=== PATIENT | female | born 1970 | race Two or more races ===

== ENCOUNTER 2020-12-03 19:39 | Emergency (ER) | payer SELFPAY ==
[~2020-12-03] VITALS: Ht 157.5 cm; Wt 81.8 kg
[2020-12-03] MEDS ORDERED: IV NORMAL SALINE 1000ML BAG 1,000 ML IV ONE ×2 (20:30→21:30)
[2020-12-03] MEDS ORDERED: KETOROLAC 15 MG/ML VIAL. IVP ONE (20:45)
[2020-12-03] MEDS ORDERED: FAMOTIDINE 20 MG/2 ML VIAL IVP ONE (20:45)
[2020-12-03] MEDS ORDERED: ONDANSETRON PF 4 MG/2 ML VIAL. IVP ONE (20:45)
[2020-12-03 20:59] LABS: BASO % 0 % (0-3); EOS # 0.1 x10^3/uL (0.0-0.7); EOS % 1 % (0-3); HEMATOCRIT 47.2 % (36.0-47.0); HEMOGLOBIN 16.1 g/dL (12.0-15.5); LYMPH # 1.6 x10^3/uL (1.0-4.8); LYMPH % 13 % (24-48); MEAN CORPUSCULAR HEMOGLOBIN 29 pg (25-35); MEAN CORPUSCULAR HGB CONC 34 g/dL (31-37); MEAN CORPUSCULAR VOLUME 84 fL (79-100); MONO # 0.8 x10^3/uL (0.0-1.1); MONO % 7 % (0-9); NEUT # 10.3 x10^3/uL (1.8-7.7); NEUT % 80 % (31-73); PLATELET COUNT 242 x10^3/uL (140-400); RED BLOOD COUNT 5.59 x10^6/uL (3.50-5.40); RED CELL DISTRIBUTION WIDTH 14.7 % (11.5-14.5); WHITE BLOOD COUNT 12.9 x10^3/uL (4.0-11.0)
[2020-12-03] MEDS ORDERED: fentaNYL PF VIAL 100 MCG/2 ML VIAL IV ONE (21:00)
--- NOTE | 2020-12-03 21:09 | PHYS DOC ---
Past Medical History Past Medical History: No Pertinent History Past Surgical History: Other Additional Past Surgical Histo: Ovarian cyst Smoking Status: Never Smoker Alcohol Use: None Drug Use: None General Adult EDM: Chief Complaint: ABDOMINAL PAIN HPI: HPI: Patient is a 50 year old female who presents with LLQ abdominal pain N/V/D of 2 hours duration. Lapel Baster used to obtain history. Pain described as throbbing in nature and 10/10 severity. Patient has no known COVID contacts. Patient has taken ibuprofen which has not helped. Patient has associated hand cramping bilaterally. Denies fever/chills. Denies trauma. Review of Systems: Review of Systems: Constitutional: Denies fever or chills Eyes: Denies redness or eye pain HENT: Denies nasal congestion or sore throat Respiratory: Denies cough or shortness of breath Cardiovascular: Denies chest pain or palpitations GI: Patient has abdominal pain, nausea, vomiting, and diarrhea : Denies dysuria or hematuria Musculoskeletal: Patient has bilateral hand cramping Integument: Denies rash or skin lesions Neurologic: Denies headache, focal weakness or sensory changes Complete systems were reviewed and found to be within normal limits, except as documented in this note. Heart Score: C/O Chest Pain: N/A Current Medications: Current Medications Medications (Trade) Dose Ordered Sig/[facility] Start Time Stop Time Status Last Admin Dose Admin Famotidine (Pepcid Vial) 20 mg 1X ONCE 12/03/20 20:45 12/03/20 20:46 DC Ketorolac Tromethamine (Toradol 15mg Vial) 15 mg 1X ONCE 12/03/20 20:45 12/03/20 20:46 DC 12/03/20 20:46 15 MG Ondansetron HCl (Zofran) 4 mg 1X ONCE 12/03/20 20:45 12/03/20 20:46 DC 12/03/20 20:45 4 MG Sodium Chloride 1,000 ml @ 1,000 mls/hr 1X ONCE 12/03/20 20:30 12/03/20 21:29 12/03/20 20:45 1,000 MLS/HR Allergies: Allergies: Allergies Coded Allergies Type Severity Reaction Last Updated Verified No Known Drug Allergies 12/03/20 No Physical Exam: PE: Constitutional: Well developed, well nourished, uncomfortable, non-toxic appearance HENT: Normocephalic, atraumatic Eyes: Conjunctiva normal, no discharge Neck: Normal range of motion, no tenderness, supple Lungs & Thorax: No respiratory distress, equal chest rise and fall Abdomen: Soft, tender to palpation in LLQ and LUQ, guarding Skin: Warm, dry, no erythema, no rash Back: No tenderness, no CVA tenderness Extremities: No tenderness, ROM intact, no edema Neurologic: Alert and oriented X 3, normal motor function, normal sensory function, no focal deficits noted Psychologic: Affect normal, judgment normal Current Patient Data: Vital Signs: Vital Signs Date Time Temp Pulse Resp B/P (MAP) Pulse Ox O2 Delivery O2 Flow Rate FiO2 12/03/20 19:45 98.4 119 20 164/86 (112) 100 Room Air 98.4 EKG: EKG: [] Radiology/Procedures: Radiology/Procedures: PROCEDURE: CT ABD PELV W/ IV CONTRST ONLY Examination: CT of the abdomen pelvis with IV contrast HISTORY: History of left lower quadrant abdominal pain COMPARISON: None TECHNIQUE: Axial CT images of the abdomen is performed with IV contrast. Coronal sagittal reformats are performed Exposure: One or more of the following individualized dose reduction techniques were utilized for this examination: 1. Automated exposure control 2. Adjustment of the mA and/or kV according to patient size 3. Use of iterative reconstruction technique FINDINGS: The bibasilar lungs are clear. No evidence of free air identified in the abdomen. The liver, spleen, adrenals grossly appears unremarkable. The gallbladder is mildly distended. The stomach is mildly distended. The visualized pancreas grossly appears unremarkable. There is thickened appearance of the wall of the small bowel loops distally with surrounding fat stranding likely enteritis. The appendix is normal. Feces and gas noted in the colon. The bilateral kidneys enhance symmetrically. The gallbladder is mildly distended. No evidence of lytic bony destructive lesion. IMPRESSION: 1. Diffuse thickened appearance of the small bowel loops distally with surr ounding fat stranding likely enteritis/inflammatory bowel disease. Electronically signed by: Neslon Gee MD (12/03/2020 9:58 PM) [id number] Course & Med Decision Making: Course & Med Decision Making Patient is a 50 year old female who presents with left sided abdominal pain and N/V/D of 2 hours duration. Lapel Baster used to obtain history. Pain described as throbbing in nature and 10/10 severity. Patient has no known COVID contacts. Patient has taken ibuprofen which has not helped. Patient has associated hand cramping bilaterally. Patient denies blood in urine, stool, or vomit. Pertinent Labs and Imaging studies reviewed. (See chart for details). Pain was addressed medically in ED. Patient reported relief of abdominal pain as well as hand cramping after fentanyl was administered. CT Abdomen/Pelvis was ordered which found small bowel irritations concerning for enteritis or irritable bowel syndrome, Cannot exclude infectious etiology. Labs demonstrated hypokalemia- likely due to vomiting and diarrhea. Zofran was given for nausea. Broad spectrum antibiotics prescribed to cover possible infectious cause for enteritis with first dose given in ED. Patient advised to increase potassium content of food. Discharge instructions provided. Patient stable for discharge with outpatient follow-up with [facility] [facility]. GI consult provided. Discussed findings and plan with patient, who acknowledges understanding and agreement. Dragon Disclaimer: Draghiro Disclaimer: This electronic medical record was generated, in whole or in part, using a voice recognition dictation system. Departure Departure Impression: Primary Impression: Abdominal pain Qualified Codes: R10.32 - Left lower quadrant pain Additional Impression: Hypokalemia Disposition: 01 DC HOME SELF CARE/HOMELESS Condition: STABLE Referrals: ELIZABET GRANADOS MD Patient Instructions: Clear Liquid Diet, Rbzo-ce-Nali, Hypokalemia, Potassium Content of Foods, Viral Gastroenteritis, Essg-xe-Axll Scripts Hyoscyamine Sulfate (LEVSIN-SL) 0.125 Mg Tab.subl 0.125 MG SL Q4-6HRS PRN for PAIN, #14 TAB Prov: DAKOTAH RAMIREZ DO 12/03/20 Metronidazole (FLAGYL) 500 Mg Tablet 500 MG PO TID for 7 Days, #21 TAB Prov: DAKOTAH RAMIREZ DO 12/03/20 Ciprofloxacin Hcl (CIPRO) 500 Mg Tablet 1 TAB PO BID for 7 Days, #14 TAB Prov: DAKOTAH RAMIREZ DO 12/03/20 Ondansetron (ONDANSETRON ODT) 4 Mg Tab.rapdis 1 TAB PO PRN Q6-8HRS PRN for NAUSEA, #16 TAB Prov: DAKOTAH RAMIREZ DO 12/03/20 DAKOTAH RAMIREZ DO Dec 03, 2020 21:09
[2020-12-03 21:17] LABS: ALBUMIN 4.1 g/dL (3.4-5.0); CREATININE 0.8 mg/dL (0.6-1.0); GFR 75.3; MAGNESIUM 1.8 mg/dL (1.8-2.4); TOTAL BILIRUBIN 0.6 mg/dL (0.2-1.0); TOTAL PROTEIN 8.3 g/dL (6.4-8.2)
[2020-12-03 21:21] LABS: POTASSIUM 2.9 mmol/L (3.5-5.1)
[2020-12-03] MEDS ORDERED: CONTRAST GIVEN. MC PRN (21:30)
[2020-12-03] MEDS ORDERED: IOHEXOL 300 MG/ML 100ML VIAL. IV ONE (21:30)
--- NOTE | 2020-12-03 22:00 | RAD ---
Examination: CT of the abdomen pelvis with IV contrast HISTORY: History of left lower quadrant abdominal pain COMPARISON: None TECHNIQUE: Axial CT images of the abdomen is performed with IV contrast. Coronal sagittal reformats a re performed Exposure: One or more of the following individualized dose reduction techniques were utilized for thi s examination: 1. Automated exposure control 2. Adjustment of the mA and/or kV according to patient size 3. Use of iterative reconstruction technique FINDINGS: The bibasilar lungs are clear. No evidence of free air identified in the abdomen. The liver, spleen, adrenals grossly appears unremarkable. The gallbladder is mildly distended. The stomach is mildly dis tended. The visualized pancreas grossly appears unremarkable. There is thickened appearance of the wa ll of the small bowel loops distally with surrounding fat stranding likely enteritis. The appendix is normal. Feces and gas noted in the colon. The bilateral kidneys enhance symmetrically. The gallbladder is mildly distended. No evidence of lytic bony destructive lesion. IMPRESSION: 1. Diffuse thickened appearance of the small bowel loops distally with surrounding fat stranding like ly enteritis/inflammatory bowel disease. Electronically signed by: Nelson Gee MD (12/03/2020 9:58 PM) [id number]
[2020-12-03 22:27] LABS: BILIRUBIN,URINE NEGATIVE (NEG); CLARITY,URINE CLEAR; COLOR,URINE YELLOW; NITRITE,URINE NEGATIVE (NEG); PH,URINE 7.5 (<5.0-8.0); PROTEIN,URINE NEGATIVE (NEG-TRACE); UROBILINOGEN,URINE 0.2 mg/dL (0.2 mg/dL)
[2020-12-03 22:32] LABS: BACTERIA,URINE FEW /HPF (0-FEW); RBC,URINE OCC /HPF (0-2)
[2020-12-03 22:47] VITALS: BP 159/81
[2020-12-03] MEDS ORDERED: METR500T PO (22:52)
[2020-12-03] MEDS ORDERED: HYOS0.1265 SL (22:52)
[2020-12-03] MEDS ORDERED: ONDA4TAB12 PO (22:52)
[2020-12-03] MEDS ORDERED: CIPR500T94 PO (22:52)
[2020-12-03] MEDS ORDERED: CIPROFLOXACIN HCL 250 MG TABLET. PO ONE (23:00)
[2020-12-03] MEDS ORDERED: metroNIDAZOLE 500 MG TABLET PO ONE (23:00)
== END 2020-12-03 22:59 | disposition home or self-care (01) ==
LOC: ER 19:39
DX: R10.32 Left lower quadrant pain (principal); E87.6 Hypokalemia; R11.2 Nausea with vomiting, unspecified; R19.7 Diarrhea, unspecified; Z98.890 Other specified postprocedural states
CPT/HCPCS: 36415; 74177; 80053; 81001; 83690; 83735; 85025; 87086; 96361; 96374; 96375; 99285; J1885; J2405; J3010; J3490; J7030; Q9967